=== PATIENT | female | born 1985 | race Caucasian/White ===

== ENCOUNTER 2019-06-23 11:54 | Outpatient (CLI) | payer OTHER ==
[~2019-06-23] VITALS: Ht 157.5 cm; Wt 75.6 kg
--- NOTE | 2019-06-23 12:05 | NUR ---
JORGITO TABARES I presented to unit via from ED, accompanied by s/o and staff, with c/o CONTRACTIONS. JORGITO TABARES I weighed, gowned, voided, and to bed. EFHM and TOCO applied, VS taken. JORGITO TABARES I oriented to bed controls, call light, TV, heat, and A/C controls.
[2019-06-23 12:15] VITALS: BP 111/62
[2019-06-23 12:40] VITALS: BP 111/64
[2019-06-23] MEDS ORDERED: IRON45TA6 PO (12:52)
[2019-06-23] MEDS ORDERED: PREN-37 PO (12:52)
--- NOTE | 2019-06-23 13:36 | NUR ---
DR. MCCALLUM NOTIFIED OF PT'S ARRIVAL, 36.6 WKS, , C/O CTXS SINCE 0500, VS, UA DIPSTICK, REVIEW OF STRIP, SVE. ORDERS RECEIVED FOR DISCHARGE HOME.
--- NOTE | 2019-06-23 13:53 | NUR ---
DISCHARGE PAPERS PROVIDED AND REVIEWED WITH PT, PT VERBALIZES UNDERSTANDING AND DENIES ANY QUESTIONS AT THIS TIME. PAPER SIGNED.
--- NOTE | 2019-06-23 13:56 | NUR ---
PT DISCHARGED FROM [facility] TO [facility] VIA AMBULATORY IN STABLE CONDITION ACC BY S/O.
--- NOTE | 2019-06-26 08:25 | Physician Query-Final Dx ---
Clinic Account Progress/Dx Physician Query: Please give diagnosis Please include # weeks gestation Date of Service Jun 23, 2019 at 11:54 KEVIN MELENDEZ Jun 26, 2019 08:25
== END 2019-06-23 13:56 | disposition home or self-care (01) ==
LOC: WSo 11:54 → LDRP 12:04 → WSo 13:56
PROVIDERS: ATTEND Family Medicine
DX: O62.9 Abnormality of forces of labor, unspecified (principal); Z3A.00 Weeks of gestation of pregnancy not specified
CPT/HCPCS: 99213

== ENCOUNTER 2019-07-06 13:13 | Outpatient (CLI) | payer OTHER ==
[~2019-07-06] VITALS: Ht 157.5 cm; Wt 77.3 kg
[~2019-07-06 13:13] MED LIST: IRON45TA6 PO; PREN-37 PO
--- NOTE | 2019-07-06 13:20 | NUR ---
JORGITO TABARES I presented to unit via AMBULATORY from ED, accompanied by S/O, AFTER BEING SENT OVER FROM THE OFFICE WITH CTXS. JORGITO TABARES I weighed, gowned, voided, and to bed. EFHM and TOCO applied, VS taken. JORGITO TABARES I oriented to bed controls, call light, TV, heat, and A/C controls.
[2019-07-06 13:26] VITALS: BP 110/60
--- NOTE | 2019-07-06 15:33 | NUR ---
DR. MULLEN CALLED, UPDATED ON LATEST SVE. NEW ORDERS RECEIVED. HAS ALREADY REVIEWED STRIP FROM HOME/OFFICE.
[2019-07-06] MEDS ORDERED: diphenhydrAMINE 25 MG TAB (BENADRYL) PO ONE ×2 (15:38→15:45)
[2019-07-06] MEDS ORDERED: morphine INJ 10 MG/ML 1ML (SYR OR VIAL) IM STA (15:38)
[2019-07-06] MEDS ORDERED: morphine INJ 10 MG/ML 1ML (SYR OR VIAL) ONE (15:39)
[2019-07-06 16:00] VITALS: BP 110/60
--- NOTE | 2019-07-06 17:00 | NUR ---
DISCHARGE PAPERS PROVIDED AND REVIEWED WITH PT, PT ACKNOWLEDGES, PAPER SIGNED.
--- NOTE | 2019-07-06 17:02 | NUR ---
MONITORS DC'D. REFER TO FLOW SHEET.
--- NOTE | 2019-07-06 17:09 | NUR ---
PT DISCHARGED FROM [facility] TO [facility] VIA AMBULATORY IN STABLE CONDITION ACC BY S/O.
--- NOTE | 2019-07-07 08:38 | Physician Query-Final Dx ---
KEVIN MELENDEZ 07/07/19 0838: Clinic Account Progress/Dx Physician Query: Please give diagnosis Please include # weeks gestation Date of Service July 06, 2019 at 13:13 SHANIKA MULLEN MD 07/10/19 1646: Clinic Account Progress/Dx DIAGNOSIS: Diagnosis Contractions without active labor 38 weeks gestation KEVIN MELENDEZ July 07, 2019 08:38 SHANIKA MULLEN MD July 10, 2019 16:46
== END 2019-07-06 17:09 | disposition home or self-care (01) ==
LOC: WSo 13:13 → LDRP 13:14 → WSo 17:09
PROVIDERS: ATTEND Family Medicine
DX: Z34.93 Encounter for supervision of normal pregnancy, unspecified, third trimester (principal); Z3A.38 38 weeks gestation of pregnancy
CPT/HCPCS: 96372; 99213

== ENCOUNTER 2019-07-14 06:08 | Inpatient (IN) | payer OTHER ==
[2019-07-14] VITALS (35 sets, daily range): BP systolic 98–144; BP diastolic 54–90
[~2019-07-14] VITALS: Ht 170.2 cm; Wt 80.0 kg
--- NOTE | 2019-07-14 06:15 | NUR ---
JORGITO TABARES I presented to unit via ambulation from home, accompanied by SO, for INDUCTION. JORGITO TABARES I weighed, gowned, voided, and to bed. EFHM and TOCO applied, VS taken. JORGITO TABARES I oriented to bed controls, call light, TV, heat, and A/C controls.
[2019-07-14] MEDS ORDERED: D5 LR IV SOLUTION 1,000 ML IV ONE (07:12)
[2019-07-14] MEDS: D5 LR IV SOLUTION 1,000 ML IV SCH ×2 (07:35→14:11)
[2019-07-14] MEDS ORDERED: OXYTOCIN PRE-MIX DRIP 500 ML IV SCH ×2 (08:09→16:00)
--- OUTSIDE RECORDS SUMMARY | 2019-07-14 08:10 | XMS REPORT | Continuity of Care Document ---
Author Organization Unknown Address Unknown Phone Unavailable Allergies Active Description Code Type Severity Reaction Onset Reported/Identified Relationship to Patient Clinical Status Yes amoxicillin [id number] Drug Aller gy Unknown N/A 06/23/2019 Medications There is no data. Problems Date Dx Coded Attending Type Code Diagnosis Diagnosed By 06/27/2019 XENA IRWIN, JUAN FRANCISCO Caceres Ot O62. 9 ABNORMALITY OF FORCES OF LABOR, UNSPECIF 06/27/2019 JUAN FRANCISCO MCCALLUM MD, Ot Z3A. 00 WEEKS OF GESTATION OF NOT SPEC 07/06/2019 SHANIKA MULLEN MD Ot Z34.93 ENCNTR FOR SUPRVSN OF NORMAL PREG, UNSP, 07/06/2019 SHANIKA MULLEN MD Ot Z3A.38 38 WEEKS GESTATION OF 07/10/2019 SHANIKA MULLEN MD Ot Z34.93 ENCNTR FOR SUPRVSN OF NORMAL PREG, UNSP, 07/10/2019 SHANIKA MULLEN MD, Ot Z3A.38 38 WEEKS GESTATION OF Procedures There is no data. Results Test Result Range CULTURE, URINE - 06/14/19 12:43 CULTURE, URINE, ROUTINE SEE NOTE NRG CULTURE, GROUP B STREP WITH SUSCEPTIBILI TY - 06/20/19 13:36 CULTURE, GROUP B STREP WITH SUSCEPTIBILITY SEE NOT E NRG Encounters ACCT No. Visit Date/Time Discharge Status Pt. Type Provider Facility Loc./Unit Complaint [id number] 07/06/2019 11:00:00 07/06/2019 23:59: 59 CLS Outpatient RONNY DIAZ VARSHA [facility] [id number] 06/20/2019 09:40:00 Document Registration [id number] 06/14/2019 10:40:00 Document Registration [id number] 07/06/2019 13:13:00 020 17:09:00 DIS Outpatient SHANIKA MULLEN MD [facility] [id number] 06/23/2019 11:54:00 04/24/2 020 13:56:00 DIS Outpatient XENA IRWIN, JUAN FRANCISCO Gant [facility] CONTRACTIONS [id number] 07/14/2019 06:30:00 Anna MULLEN MD, SHANIKA KHAN
[2019-07-14 08:19] LABS: BASOPHILS % (AUTO) 0 % (0-10); EOSINOPHILS # (AUTO) 0.1 10^3/uL (0.0-0.3); EOSINOPHILS % (AUTO) 2 % (0-10); HEMATOCRIT 36 % (35-52); HEMOGLOBIN 11.8 G/DL (11.5-16.0); LYMPHOCYTES # (AUTO) 1.7 X 10^3 (1.0-4.0); LYMPHOCYTES % (AUTO) 24 % (12-44); MEAN CORPUSCULAR HEMOGLOBIN 29 PG (25-34); MEAN CORPUSCULAR HGB CONC 33 G/DL (32-36); MEAN CORPUSCULAR VOLUME 89 FL (80-99); MONOCYTES % (AUTO) 13 % (0-12); NEUTROPHILS # (AUTO) 4.5 X 10^3 (1.8-7.8); NEUTROPHILS % (AUTO) 61 % (42-75); PLATELET COUNT 151 10^3/uL (130-400); RED CELL DISTRIBUTION WIDTH 15.4 % (10.0-14.5); WHITE BLOOD COUNT 7.3 10^3/uL (4.3-11.0)
--- NOTE | 2019-07-14 08:31 | History & Physical-OB ---
OB - Chief Complaint & HPI Date/Time Date of Admission: Date of Admission: July 14, 2019 at 06:08 Date seen by a Provider: July 14, 2019 Time Seen by a Provider: 11:02 Chief Complaint/History OB-Reason for Admission/Chief: Induction of Labor Hx : 4 Hx Para: 3 Expected Date of Delivery: July 15, 2019 Gestational Age in Weeks: 39 Gestational Age in Days: 6 Indication for induction: maternal discomfort History of Labs A+, antibody neg, RNI. HIV/HepB/RPR NR. GC/chlamydia neg. GBS neg. Allergies and Home Medications Allergies Coded Allergies: amoxicillin (Verified Allergy, Unknown, 06/23/19) morphine (Verified Allergy, Unknown, 07/14/19) Home Medications Iron,Carbonyl 45 Mg Tablet, 45 MG PO DAILY, (Reported) Vit/Iron Fumarate/FA 1 Each Tablet, 1 EACH PO DAILY, (Reported) Patient Home Medication List Home Medication List Reviewed: Yes OB - History Hx of Present Care: Yes Ultrasounds: Normal mid trimester US Obstetrical Complications: None Information Induced Hypertension: No Maternal Gestational Diabetes: No Hemorrhage: No Obstetrical History Hx : 4 Hx Para: 3 Hx # Term Pregnancies: 3 Hx # Pregnancies: 0 Number of Living Children: 3 Hx Termination: No Hx Multiple Gestation: No Hx Ectopic : No Hx Stillbirth: No Hx Complication: No Hx Induced Hypertens: No Hx Maternal Gestational Diabet: No Hx Hemorrhage: No Delivery History Hx Dystocia: No Hx Forceps Assisted Delivery: No Hx Vacuum Extraction Assisted: No Hx Placenta Abnormality: No Hx Distress: No Hx Large For Gestational Age I: No Hx Small for Gestational Age I: No Hx Section: No Hx Vaginal Delivery Post C-Sec: No Hx Blood Disorders: No Adverse Rxn to Tranfusion: No Patient Past Medical History PMHx: Deaf SurgHx: Denies Social History/Family History HIV/AIDS: No Recent Infectious Disease Expo: No Sexually Transmitted Disease: No Alcohol Use: Denies Use Recreational Drug Use: No Smoking Cessation: Never smoker Immunizations Tetanus Booster (TDap): Less than 5yrs (05/02/2019) Rubella: not immune RPR/VDRL: Negative GBS Status: Negative HBsAG: Negative OB - Admission Exam Physical Exam HEENT: NCAT Abdomen: Gravid Extremities: Normal Cervical Dilatation: 3cm Effacement: 0% Station: -3 Membranes: Intact Preston Scoring Tool (Modified) Dilation (cm): 3-4cm (2) Effacement (%): 0-30% (0) Descent/Station: -3 (0) Cervix Consistency: Soft (2) Cervix Position: Posterior (0) Add 1 point for: Each previous vaginal delivery (1) (3) Labs Laboratory Tests Test 07/14/19 07:35 Range/Units White Blood Count 7.3 4.3-11.0 10^3/uL Red Blood Count 4.10 L 4.35-5.85 10^6/uL Hemoglobin 11.8 11.5-16.0 G/DL Hematocrit 36 35-52 % Mean Corpuscular Volume 89 80-99 FL Mean Corpuscular Hemoglobin 29 25-34 PG Mean Corpuscular Hemoglobin Concent 33 32-36 G/DL Red Cell Distribution Width 15.4 H 10.0-14.5 % Platelet Count 151 130-400 10^3/uL Mean Platelet Volume 11.0 H 7.4-10.4 FL Neutrophils (%) (Auto) 61 42-75 % Lymphocytes (%) (Auto) 24 12-44 % Monocytes (%) (Auto) 13 H 0-12 % Eosinophils (%) (Auto) 2 0-10 % Basophils (%) (Auto) 0 0-10 % Neutrophils # (Auto) 4.5 1.8-7.8 X 10^3 Lymphocytes # (Auto) 1.7 1.0-4.0 X 10^3 Monocytes # (Auto) 1.0 0.0-1.0 X 10^3 Eosinophils # (Auto) 0.1 0.0-0.3 10^3/uL Basophils # (Auto) 0.0 0.0-0.1 10^3/uL OB - Assessment/Plan/Diagnosis Assessment Admission Dx Induction of labor 39 weeks gestation GBS neg Admission Status: Inpatient Order (span 2 midnights) Reason for Inpatient Admission: Induction, labor and delivery and course Plan Plan: Induction Induction Method: per Pitocin Protocol SHANIKA MULLEN MD July 14, 2019 08:31
[2019-07-14] MEDS ORDERED: fentaNYL 2 mcg/ml BUPIVA 0.125 100 ML ONE (09:03)
[2019-07-14] MEDS ORDERED: BUPIVACAINE 0.25% 30 ML (SENSORCAINE) VIAL ONE (09:19)
[2019-07-14] MEDS ORDERED: fentaNYL INJECTION 100 MCG/2 ML AMP ONE (09:20)
--- NOTE | 2019-07-14 09:30 | NUR ---
Dr. Smiley here for epidural placement. Procedure explained, consent reviewed and signed by anesthesia. Questions answered to patient's satisfaction. Time out taken to verify correct patient/procedure. Patient up to side of bed, assisted into sitting position. Betadine prep done x3 and sterile drape applied. Local done, see anesthesia record. Test dose given, see anesthesia record for drug and dosage. Epidural catheter secured in place. Epidural placement complete. Assisted back into bed, monitors adjusted. Epidural dosed, see anesthesia record. Epidural of Fentanyl/Bupivicaine @ 12 cc/hr stated per pump. Patient tolerated procedure well.
[2019-07-14] MEDS ORDERED: fentaNYL 2 mcg/ml BUPIVA 0.125 100 ML IV SCH (09:59)
[2019-07-14] MEDS ORDERED: LACTATED RINGERS 1,000 ML IV ONE (09:59)
[2019-07-14] MEDS ORDERED: EPIDURAL (fentaNYL 2 MCG/ML BUPIVA 0.125%)100 ML BAG EPI SCH (10:00)
[2019-07-14] MEDS ORDERED: NALOXONE 0.4 MG/ML 1 ML (NARCAN) VIAL IV PRN (10:00)
[2019-07-14] MEDS ORDERED: CATHETER FLUSH 10 ML SYR IV PRN (10:00)
[2019-07-14] MEDS ORDERED: diphenhydrAMINE 50 MG/ML INJ (BENADRYL) IV PRN (10:00)
[2019-07-14] MEDS ORDERED: ONDANSETRON 4 MG/2 ML (SDV) Z0FRAN IV PRN (10:00)
[2019-07-14] MEDS ORDERED: CATHETER FLUSH 10 ML SYR IV SCH ×2 (14:00→22:00)
[2019-07-14] MEDS ORDERED: MINERAL OIL CONCENTRATE 99.9% 15 ML UDC ONE (14:05)
[2019-07-14] MEDS ORDERED: LIDOCAINE/EPI 2% 1:200,00 (XYLOCAINE) 20 ML VIAL ONE (14:05)
--- NOTE | 2019-07-14 15:48 | OB Labor & Delivery Record ---
Vag Delivery Note Vag Delivery Note Date of Delivery: 07/14/19 Preoperative Diagnosis: Dara Cox is a (33 /Para 4 / 3, Gestational Age (wks)39with 6 days Postoperative Diagnosis: Same Surgeon: SHANIKA MULLEN Anesthesia: epidural Delivery Type: Spontaneous vaginal Findings: Viable female , apgars 8/9, weight 8#4 Lacerations: None Intact placenta with 3 vessel cord. No nuchal cord, body cord or shoulder dystocia Estimated Blood Loss: 200 ml Complications: None Condition: Stable Description of Procedure: The patient is a 33 year old female who presented for induction of labor. She was admitted and informed consent was obtained. Her labor course was unremarkable. She progressed to complete dilatation and began to push. She was then set up for delivery. The 's head was delivered atraumatically in the MARTHA position. The shoulders and remainder of the infant's body were then delivered without difficulty. Upon delivery, the infant was placed on maternal abdomen and the mouth and nares were bulb suctioned. After a delay the cord was doubly clamped and cut and the remained on maternal abdomen. An intact placenta with 3-vessel cord delivered via Yaw and there was found to be mi nimal bleeding.~ Vigorous fundal massage was performed and the fundus was found to be firm. IV oxytocin was given. Examination of the vagina and perineum revealed no lacerations. Following the delivery sponge, instrument and needle counts were correct. Mom and baby were both in stable condition in the labor suite. Vitals - Labs Vital Signs - I&O Vital Signs Date Time Temp Pulse Resp B/P (MAP) Pulse Ox O2 Delivery O2 Flow Rate FiO2 07/14/19 09:45 36.4 81 16 126/69 (88) 100 Room Air 07/14/19 09:30 90 16 132/90 (104) 100 Room Air 07/14/19 09:15 61 16 129/78 (95) 100 Room Air 07/14/19 09:00 60 16 127/72 (90) 99 Room Air 07/14/19 08:45 36.4 56 16 124/65 (84) 100 Room Air 07/14/19 08:30 76 16 123/68 (86) 99 Room Air 07/14/19 08:00 77 16 98 Room Air 07/14/19 07:13 56 16 112/67 (82) Room Air 07/14/19 07:13 36.4 56 16 98 Room Air Labs Laboratory Tests 07/14/19 07:35: White Blood Count 7.3, Red Blood Count 4.10L, Hemoglobin 11.8, Hematocrit 36, Mean Corpuscular Volume 89, Mean Corpuscular Hemoglobin 29, Mean Corpuscular Hemoglobin Concent 33, Red Cell Distribution Width 15.4H, Platelet Count 151, Mean Platelet Volume 11.0H, Neutrophils (%) (Auto) 61, Lymphocytes (%) (Auto) 24, Monocytes (%) (Auto) 13H, Eosinophils (%) (Auto) 2, Basophils (%) (Auto) 0, Neutrophils # (Auto) 4.5, Lymphocytes # (Auto) 1.7, Monocytes # (Auto) 1.0, Eosinophils # (Auto) 0.1, Basophils # (Auto) 0.0 07/14/19 08:20: SHANIKA MULLEN MD July 14, 2019 15:48
[2019-07-14] MEDS ORDERED: WITCH HAZEL(TUCKS) 40 EA JAR TOP PRN (16:00)
[2019-07-14] MEDS ORDERED: MEASLES,MUMPS,RUBELLA 1 EA INJ SQ ONE (16:00)
[2019-07-14] MEDS ORDERED: BENZOCAINE/MENTHOL (DERMOPLAST) 60 ML CAN TP PRN (16:00)
[2019-07-14] MEDS ORDERED: TETANUS,DIPTH,PERTUSS P/F (BOOSTRIX) 0.5 ML VIAL IM ONE (16:00)
[2019-07-14] MEDS: IBUPROFEN 600 MG (MOTRIN) TAB PO SCH (18:20)
--- NOTE | 2019-07-14 18:45 | NUR ---
Patient transferred via wheelchair to room 311. Patient's left leg still "heavy." Patient denies needing to use the restroom at this time. Plan of care reviewed with patient and S.O. Understanding communicated.
[2019-07-14] MEDS: DOCUSATE SODIUM 100 MG (COLACE) CAP PO SCH (20:17)
[2019-07-15 00:55] VITALS: BP 122/66
[2019-07-15] MEDS: IBUPROFEN 600 MG (MOTRIN) TAB PO SCH ×3 (00:57→12:50)
[2019-07-15 04:10] VITALS: BP 110/68
[2019-07-15 06:20] LABS: BASOPHILS % (AUTO) 0 % (0-10); EOSINOPHILS # (AUTO) 0.2 10^3/uL (0.0-0.3); EOSINOPHILS % (AUTO) 2 % (0-10); HEMATOCRIT 35 % (35-52); HEMOGLOBIN 11.4 G/DL (11.5-16.0); LYMPHOCYTES # (AUTO) 2.1 X 10^3 (1.0-4.0); LYMPHOCYTES % (AUTO) 22 % (12-44); MEAN CORPUSCULAR HEMOGLOBIN 29 PG (25-34); MEAN CORPUSCULAR HGB CONC 32 G/DL (32-36); MEAN CORPUSCULAR VOLUME 89 FL (80-99); MEAN PLATELET VOLUME 10.5 FL (7.4-10.4); MONOCYTES # (AUTO) 0.7 X 10^3 (0.0-1.0); MONOCYTES % (AUTO) 7 % (0-12); NEUTROPHILS # (AUTO) 6.6 X 10^3 (1.8-7.8); NEUTROPHILS % (AUTO) 69 % (42-75); PLATELET COUNT 146 10^3/uL (130-400); RED CELL DISTRIBUTION WIDTH 15.6 % (10.0-14.5); WHITE BLOOD COUNT 9.6 10^3/uL (4.3-11.0)
[2019-07-15 08:35] VITALS: BP 118/63
[2019-07-15] MEDS: DOCUSATE SODIUM 100 MG (COLACE) CAP PO SCH (08:42)
--- NOTE | 2019-07-15 10:46 | Anesthesia-Regional Post-Op ---
Regional Patient Condition Mental Status: Alert, Oriented x3 Circulation: Same as Pre-Op Headache: Absent Sensation: Full Recovery Motor Block: Absent Post Op Complications Complications None Follow Up Care/Instructions Patient Instructions None needed. Anesthesia/Patient Condition Patient is doing well, no complaints, stable vital signs, no apparent adverse anesthesia problems. No complications reported per nursing. RILEY GARCIA CRNA July 15, 2019 10:46
[2019-07-15 12:45] VITALS: BP 120/77
--- NOTE | 2019-07-15 14:00 | NUR ---
REPORT RECEIVED FROM MERE BRADLEY RN. CARE ASSUMED OF THIS PT.
--- NOTE | 2019-07-15 15:00 | NUR ---
PT ANXIOUS TO GO HOME. PT AND S.O. BOTH DEAF. WRITING ON WHITE BOARD TO COMMUNICATE.
--- NOTE | 2019-07-15 15:36 | NUR ---
CALLED LAB TO INFORM OF PT WANTING TO GO HOME THIS EVENING AFTER 'S 24 HOUR SCREEN. WILL SEND SOMEONE UP.
--- NOTE | 2019-07-15 17:06 | NUR ---
DR. CASTILLO NOTIFIED OF PHARMACY PT WILL USE.
--- NOTE | 2019-07-15 17:07 | Discharge Summary ---
Diagnosis/Chief Complaint Date of Admission July 14, 2019 at 06:08 Date of Discharge 07/15/2019 Admission Diagnosis Admission Diagnosis Term 39 week gestation Discharge Diagnosis @ 39 wga Term Female Infant Discharge Summary-Simple/Stand Procedures Discharge Physical Examination Allergies: Coded Allergies: amoxicillin (Verified Allergy, Unknown, 06/23/19) Vitals & I&Os Vital Sign - Last 12Hours Date Time Temp Pulse Resp B/P (MAP) Pulse Ox O2 Delivery O2 Flow Rate FiO2 07/15/19 12:50 36.6 07/15/19 12:45 60 16 120/77 (91) 98 Room Air Intake and Output 07/15/19 00:00 Intake Total 2100 ml Balance 2100 ml General Appearance: Alert, Oriented X3, Cooperative, No Acute Distress HEENT: Mucous Memb Moist/Kennard Respiratory: Clear to Auscultation, Normal Air Movement Cardiovascular: Regular Rate, No Murmurs Abdominal: Normal Bowel Sounds, Soft, No Tenderness, Other (fundus firm and below umbilicus) Extremities: No Edema, No Tenderness/Swelling Psych/Mental Status: Mental Status NL, Mood NL Hospital Course Was the Problem List Reviewed?: Yes See final discharge diagnosis. Discussion & Recommendations 33 yo G4 now P4 delivered term female infant via @ 39 wga. Uncomplicated delivery and post care. Discharge Condition at discharge Stable Instructions to patient/family Please see electronic discharge instructions given to patient. Discharge Medications Reviewed and agree with Discharge Medication list on patient's Discharge Instruction sheet Clinical Quality Measures DVT/VTE Risk/Contraindication: Risk Factor Score Per Nursin RFS Level Per Nursing on Admit: 1=Low/No VTE PPX Copy Copies To 1: SHANIKA MULLEN MD, HOLLY R MD July 15, 2019 17:07
[2019-07-15] MEDS ORDERED: IBUP-844 PO (17:08)
--- NOTE | 2019-07-15 17:09 | Discharge Summary ---
Discharge Inst-[facility] Reconcile Patient Problems Problems Reviewed?: Yes Depart Medications New, Converted or Re-Newed RX: Transmitted to Pharmacy New Medications: Ibuprofen (Ibu) 600 Mg Tablet 600 MG PO Q6H, #90 TAB Continued Medications: Vit/Iron Fumarate/FA ( Tablet) 1 Each Tablet 1 EACH PO DAILY, TAB Discontinued Medications: Iron,Carbonyl (Feosol) 45 Mg Tablet 45 MG PO DAILY, TAB Follow Up/Instructions Goal/Follow Up: [address] Sandhu Activity Activity: Activity as Tolerated Driving Instructions: You May Drive NO SMOKING: NO SMOKING Nothing Inside Vagina: No Douching, No [place], No Tampons Diet Discharge Diet: No Restrictions Symptoms to Report to : Swelling Increased, Bleeding Excessive, Fever Over 101 Degrees F For Any Problems or Questions: Contact Your Physician Copies To 1: SHANIKA SANDHU MD, HOLLY R MD July 15, 2019 17:09
[2019-07-15 17:45] VITALS: BP 137/65
--- NOTE | 2019-07-15 18:00 | NUR ---
DISCHARGE INSTRUCTIONS READ BY PT AND COPY GIVEN. (PT AND S.O. BOTH DEAF). STATES UNDERSTANDING OF ALL INSTRUCTIONS AND NEED TO F/U SCHEDULED AND NEEDED.
[2019-07-15 18:15] VITALS: BP 137/65
--- NOTE | 2019-07-15 18:15 | NUR ---
DISMISSED FROM [facility]IA W/C WITH IN STABLE CONDITION TO FAMILY CAR ACC BY ZACHARY YOUNG.
== END 2019-07-15 18:15 | disposition home or self-care (01) | DRG 807 ==
LOC: LDRP 06:08
PROVIDERS: ADMIT Family Medicine; ATTEND Family Medicine
PROC: 10E0XZZ Delivery of Products of Conception, External Approach (ICD-10-PCS; principal; 2019-07-14)
PROC: 3E033VJ Introduction of Other Hormone into Peripheral Vein, Percutaneous Approach (ICD-10-PCS; 2019-07-14)
DX: O99.89 Other specified diseases and conditions complicating pregnancy, childbirth and the puerperium (principal); H91.93 Unspecified hearing loss, bilateral; Z3A.39 39 weeks gestation of pregnancy; Z37.0 Single live birth
CPT/HCPCS: 36415; 85025; 86780; 86850; 86900; 86901

== ENCOUNTER 2020-07-18 12:15 | Inpatient (IN) | payer MEDICAID ==
[~2020-07-18] VITALS: Ht 165 cm; Wt 81.4 kg
[2020-07-18] VITALS (40 sets, daily range): BP systolic 103–142; BP diastolic 53–82
[~2020-07-18 12:15] MED LIST changes: +IBUP-844 PO
[2020-07-18] MEDS ORDERED: MINERAL OIL CONCENTRATE 99.9% 15 ML UDC TOP PRN (12:30)
[2020-07-18] MEDS ORDERED: LABETALOL HCL 100 MG/20 ML VIAL IV PRN (12:30)
[2020-07-18] MEDS ORDERED: hydrALAZINE (APESOLINE) 20 MG/ML VIAL IV PRN (12:30)
[2020-07-18] MEDS ORDERED: OXYTOCIN PRE-MIX DRIP 500 ML IV SCH ×2 (12:30→23:00)
[2020-07-18] MEDS ORDERED: CATHETER FLUSH 10 ML SYR IV SCH ×2 (14:00→23:00)
[2020-07-18 14:05] LABS: BASOPHILS # (AUTO) 0.1 10^3/uL (0.0-0.1); BASOPHILS % (AUTO) 1 % (0-10); EOSINOPHILS # (AUTO) 1.2 10^3/uL (0.0-0.3); EOSINOPHILS % (AUTO) 10 % (0-10); HEMATOCRIT 36 % (35-52); HEMOGLOBIN 11.6 g/dL (11.5-16.0); LYMPHOCYTES # (AUTO) 1.7 10^3/uL (1.0-4.0); LYMPHOCYTES % (AUTO) 14 % (12-44); MEAN CORPUSCULAR HEMOGLOBIN 29 pg (25-34); MEAN CORPUSCULAR HGB CONC 32 g/dL (32-36); MEAN CORPUSCULAR VOLUME 89 fL (80-99); MEAN PLATELET VOLUME 10.2 fL (9.0-12.2); MONOCYTES # (AUTO) 0.7 10^3/uL (0.0-1.0); MONOCYTES % (AUTO) 6 % (0-12); NEUTROPHILS # (AUTO) 8.3 10^3/uL (1.8-7.8); NEUTROPHILS % (AUTO) 69 % (42-75); PLATELET COUNT 227 10^3/uL (130-400)
[2020-07-18] MEDS: D5 LR IV SOLUTION 1,000 ML IV SCH ×2 (14:07→22:08)
[2020-07-18 14:22] LABS: URINE CREATININE FOR RATIO 83 MG/DL (30-125); URINE PROTEIN FOR RATIO ONLY < 6 MG/DL (6-12)
[2020-07-18 14:32] LABS: ALANINE AMINOTRANSFERASE 13 U/L (0-55); ALBUMIN 3.3 GM/DL (3.2-4.5); ALKALINE PHOSPHATASE 123 U/L (40-136); BILIRUBIN,TOTAL 0.2 MG/DL (0.1-1.0); BUN/CREATININE RATIO 12; CALCIUM 8.5 MG/DL (8.5-10.1); CARBON DIOXIDE 20 MMOL/L (21-32); CHLORIDE 106 MMOL/L (98-107); CREATININE SERUM 0.77 MG/DL (0.60-1.30); GFR ESTIMATED > 60; GLUCOSE 73 MG/DL (70-105); POTASSIUM 4.1 MMOL/L (3.6-5.0); SODIUM 134 MMOL/L (135-145); TOTAL PROTEIN 6.1 GM/DL (6.4-8.2); URIC ACID 7.3 MG/DL (2.6-7.2)
[2020-07-18] MEDS ORDERED: LABETALOL HCL 20 MG/4 ML VIAL IV PRN (16:15)
[2020-07-18] MEDS ORDERED: fentaNYL 2 mcg/ml BUPIVA 0.125 100 ML ONE (16:40)
[2020-07-18] MEDS ORDERED: fentaNYL INJ 100 MCG/2 ML AMP ONE (17:07)
[2020-07-18] MEDS ORDERED: BUPIVACAINE 0.25% 30 ML (SENSORCAINE) VIAL ONE ×2 (17:07→20:13)
[2020-07-18] MEDS ORDERED: LACTATED RINGERS 1,000 ML IV ONE (18:30)
[2020-07-18] MEDS ORDERED: NALOXONE 0.4 MG/ML 1 ML (NARCAN) VIAL IV PRN (20:15)
[2020-07-18] MEDS ORDERED: CATHETER FLUSH 10 ML SYR IV PRN (20:15)
[2020-07-18] MEDS ORDERED: fentaNYL 2 mcg/ml BUPIVA 0.125 100 ML IV SCH (20:30)
--- NOTE | 2020-07-18 21:08 | History & Physical-OB ---
OB - Chief Complaint & HPI Date/Time Date of Admission: Date of Admission: Date seen by a Provider: July 18, 2020 Time Seen by a Provider: 16:30 Chief Complaint/History OB-Reason for Admission/Chief: Obstetrical Complication Hx : 5 Hx Para: 4 Expected Date of Delivery: Aug 02, 2020 Gestational Age in Weeks: 37 Gestational Age in Days: 6 Indication for induction: medical complication Other reason for admission: at 37w6d had blood pressure in the 140s/90s in clinic yesterday, repeat this morning 150s/90s, so she was sent for induction of labor. History of Labs A+, antibody neg, RNI, HIV/hepB/RPR NR. Glucola nml. GBS neg. Allergies and Home Medications Allergies Coded Allergies: amoxicillin (Verified Allergy, Unknown, 06/23/19) Home Medications Vit/Iron Fumarate/FA 1 Each Tablet, 1 EACH PO DAILY, (Reported) Last Action: Reviewed Patient Home Medication List Home Medication List Reviewed: Yes OB - History Hx of Present Care: Yes Ultrasounds: Normal mid trimester US Obstetrical Complications: Gestational Hypertension Information Induced Hypertension: Yes Maternal Gestational Diabetes: No Hemorrhage: No Obstetrical History Hx : 5 Hx Para: 4 Hx # Term Pregnancies: 4 Hx # Pregnancies: 0 Number of Living Children: 4 Hx Termination: No Hx Multiple Gestation: No Hx Ectopic : No Hx Stillbirth: No Hx Complication: No Hx Induced Hypertens: No Hx Maternal Gestational Diabet: No Hx Hemorrhage: No Delivery History Hx Dystocia: No Hx Forceps Assisted Delivery: No Hx Vacuum Extraction Assisted: No Hx Placenta Abnormality: No Hx Distress: No Hx Large For Gestational Age I: No Hx Small for Gestational Age I: No Hx Section: No Hx Vaginal Delivery Post C-Sec: No Hx Blood Disorders: No Adverse Rxn to Tranfusion: No Patient Past Medical History PMHx: Deaf Suspected asthma SurgHx: Denies Social History/Family History Alcohol Use: Denies Use Immunizations Hepatitis A: No Hepatitis B: No Tetanus Booster (TDap): Less than 5yrs Rubella: not immune RPR/VDRL: Negative GBS Status: Negative HBsAG: Negative OB - Admission Exam Physical Exam Vitals: Vital Signs 07/18/20 07/18/20 18:15 19:00 Temp 36.5 Pulse 68 Resp 18 B/P (MAP) 115/65 (82) Pulse Ox 98 O2 Delivery Room Air Cervical Dilatation: 2cm Effacement: 0% Station: -3 Membranes: Intact Contractions on Admission: 6-10 Minutes Apart Preston Scoring Tool (Modified) Dilation (cm): 1-2cm (1) Effacement (%): 0-30% (0) Descent/Station: -3 (0) Cervix Consistency: Soft (2) Cervix Position: Posterior (0) Add 1 point for: Each previous vaginal delivery (1) (4) Preston Score: 7 Labs Laboratory Tests Test 07/18/20 13:50 07/18/20 14:00 Range/Units Urine Protein < 6 L 6-12 MG/DL Urine Creatinine 83 30-125 MG/DL Urine Protein/Creatinine Ratio White Blood Count 12.0 H 4.3-11.0 10^3/uL Red Blood Count 4.03 3.80-5.11 10^6/uL Hemoglobin 11.6 11.5-16.0 g/dL Hematocrit 36 35-52 % Mean Corpuscular Volume 89 80-99 fL Mean Corpuscular Hemoglobin 29 25-34 pg Mean Corpuscular Hemoglobin Concent 32 32-36 g/dL Red Cell Distribution Width 14.6 H 10.0-14.5 % Platelet Count 227 130-400 10^3/uL Mean Platelet Volume 10.2 9.0-12.2 fL Immature Granulocyte % (Auto) 1 % Neutrophils (%) (Auto) 69 42-75 % Lymphocytes (%) (Auto) 14 12-44 % Monocytes (%) (Auto) 6 0-12 % Eosinophils (%) (Auto) 10 0-10 % Basophils (%) (Auto) 1 0-10 % Neutrophils # (Auto) 8.3 H 1.8-7.8 10^3/uL Lymphocytes # (Auto) 1.7 1.0-4.0 10^3/uL Monocytes # (Auto) 0.7 0.0-1.0 10^3/uL Eosinophils # (Auto) 1.2 H 0.0-0.3 10^3/uL Basophils # (Auto) 0.1 0.0-0.1 10^3/uL Immature Granulocyte # (Auto) 0.1 0.0-0.1 10^3/uL Sodium Level 134 L 135-145 MMOL/L Potassium Level 4.1 3.6-5.0 MMOL/L Chloride Level 106 98-107 MMOL/L Carbon Dioxide Level 20 L 21-32 MMOL/L Anion Gap 8 5-14 MMOL/L Blood Urea Nitrogen 9 7-18 MG/DL Creatinine 0.77 0.60-1.30 MG/DL Estimat Glomerular Filtration Rate > 60 BUN/Creatinine Ratio 12 Glucose Level 73 70-105 MG/DL Uric Acid 7.3 H 2.6-7.2 MG/DL Calcium Level 8.5 8.5-10.1 MG/DL Corrected Calcium 9.1 8.5-10.1 MG/DL Total Bilirubin 0.2 0.1-1.0 MG/DL Aspartate Amino Transf (AST/SGOT) 18 5-34 U/L Alanine Aminotransferase (ALT/SGPT) 13 0-55 U/L Alkaline Phosphatase 123 40-136 U/L Lactate Dehydrogenase 160 125-220 U/L Total Protein 6.1 L 6.4-8.2 GM/DL Albumin 3.3 3.2-4.5 GM/DL OB - Assessment/Plan/Diagnosis Assessment Admission Dx Gestational hypertension 37 weeks gestation GBS negative Rubella non-immune Admission Status: Inpatient Order (span 2 midnights) Reason for Inpatient Admission: Labor, delivery and course Plan Plan: Induction Induction Method: per Pitocin Protocol Other Plan Preeclampsia labs, labetalol if needed for BP, but blood pressure good on arrival. SHANIKA MULLEN MD July 18, 2020 21:08
--- NOTE | 2020-07-18 21:10 | Labor Progress Note ---
Labor Progress Note Labor Progress Note Date Seen by Provider: July 18, 2020 Time Seen by Provider: 20:45 Subjective: Pt denies complaints. Objective: Cervical exam: / Consistency: soft Position: anterior Presentation: vertex heart tones: 140 beats per minute, moderate variability, reactive, noted late decel with 3 contractions in a row, no further after Tocometer: 5 ctx/10 minutes Assessment/Plan: Dara Cox is a (34 /Para / ,Gestational Age (wks)37 here for IOL for GHTN. CEFM/TOCO Continue pitocin/AROM done at time of exam with clear fluid Anesthesia: epidural Anticipate vaginal delivery. Vitals - Labs Vital Signs - I&O Vital Signs Date Time Temp Pulse Resp B/P (MAP) Pulse Ox O2 Delivery O2 Flow Rate FiO2 07/18/20 19:00 68 18 115/65 (82) 98 Room Air 07/18/20 18:45 73 18 109/64 (79) 98 Room Air 07/18/20 18:30 80 18 110/55 (73) 98 Room Air 07/18/20 18:15 36.5 81 18 121/62 (81) 98 Room Air 07/18/20 18:00 75 18 117/70 (86) 98 Room Air 07/18/20 17:55 78 18 116/61 (79) 98 Room Air 07/18/20 17:50 82 18 122/68 (86) 98 Room Air 07/18/20 17:45 84 18 129/58 (81) 98 Room Air 07/18/20 17:40 80 18 128/67 (87) 98 Room Air 07/18/20 17:35 88 18 118/64 (82) 98 Room Air 07/18/20 17:30 110 18 127/78 (94) Room Air 07/18/20 17:25 104 18 142/71 (94) 99 Room Air 07/18/20 17:20 81 18 128/82 (97) 98 Room Air 07/18/20 17:15 84 18 128/66 (86) Room Air 07/18/20 17:00 72 18 119/58 (78) Room Air 07/18/20 16:45 68 18 118/58 (78) Room Air 07/18/20 16:30 61 18 113/63 (80) Room Air 07/18/20 16:15 74 18 132/74 (93) Room Air 07/18/20 16:00 36.5 80 18 127/67 (87) Room Air 07/18/20 15:45 66 18 129/62 (84) Room Air 07/18/20 15:30 63 18 116/64 (81) 99 Room Air 07/18/20 15:15 36.5 70 18 120/68 (85) 99 Room Air 07/18/20 15:00 108/57 (74) Room Air 07/18/20 14:45 121/60 (80) Room Air 07/18/20 14:30 134/62 (86) Room Air 07/18/20 14:15 36.5 76 110/72 (85) Room Air 07/18/20 14:00 36.5 76 110/72 (85) Room Air 07/18/20 13:25 76 110/72 (85) Room Air 07/18/20 13:15 Room Air 07/18/20 13:00 36.5 97 18 98 Room Air 07/18/20 13:00 98 Room Air 07/18/20 12:51 36.5 78 16 111/75 (87) 98 Room Air Labs Laboratory Tests 07/18/20 13:50: Urine Protein < 6L, Urine Creatinine 83, Urine Protein/Creatinine Ratio 07/18/20 14:00: White Blood Count 12.0H, Red Blood Count 4.03, Hemoglobin 11.6, Hematocrit 36, Mean Corpuscular Volume 89, Mean Corpuscular Hemoglobin 29, Mean Corpuscular Hemoglobin Concent 32, Red Cell Distribution Width 14.6H, Platelet Count 227, Mean Platelet Volume 10.2, Immature Granulocyte % (Auto) 1, Neutrophils (%) (Auto) 69, Lymphocytes (%) (Auto) 14, Monocytes (%) (Auto) 6, Eosinophils (%) (Auto) 10, Basophils (%) (Auto) 1, Neutrophils # (Auto) 8.3H, Lymphocytes # (Auto) 1.7, Monocytes # (Auto) 0.7, Eosinophils # (Auto) 1.2H, Basophils # (Auto) 0.1, Immature Granulocyte # (Auto) 0.1, Sodium Level 134L, Potassium Level 4.1, Chloride Level 106, Carbon Dioxide Level 20L, Anion Gap 8, Blood Urea Nitrogen 9, Creatinine 0.77, Estimat Glomerular Filtration Rate > 60, BUN/Creatinine Ratio 12, Glucose Level 73, Uric Acid 7.3H, Calcium Level 8.5, Corrected Calcium 9.1, Total Bilirubin 0.2, Aspartate Amino Transf (AST/SGOT) 18, Alanine Aminotransferase (ALT/SGPT) 13, Alkaline Phosphatase 123, Lactate Dehydrogenase 160, Total Protein 6.1L, Albumin 3.3 SHANIKA MULLEN MD July 18, 2020 21:10
--- NOTE | 2020-07-18 21:49 | OB Labor & Delivery Record ---
Vag Delivery Note Vag Delivery Note Date of Delivery: 07/18/20 Preoperative Diagnosis: Dara Cox is a (34 /Para 5 / 4, Gestational Age (wks)37with 6 days Postoperative Diagnosis: Same Surgeon: SHANIKA MULLEN Anesthesia: Epidural Delivery Type: Spontaneous vaginal delivery Findings: Viable female infant, apgars 8/9, weight pending Lacerations: None Intact placenta with 3 vessel cord. No nuchal cord, body cord or shoulder dystocia Estimated Blood Loss: 200 ml Complications: None Condition: Stable Description of Procedure: The patient is a 34 year old female who presented for IOL for GHTN. She was admitted and informed consent was obtained. Her labor course was remarkable for short period about 10 minutes of late decelerations just before progressing to complete. She progressed to complete dilatation and began to push. She was then set up for delivery. The 's head was delivered atraumatically in the OA position. The shoulders and remainder of the 's body were then delivered without difficulty. Upon delivery, the infant was vigorous and placed on maternal abdomen. After a delya the cord was doubly clamped and cut and the remained on mother's chest. An intact placenta with 3-vessel cord delivered via Yaw and there was found to be minimal bleeding.~ Vigorous fundal massage was performed and the fundus was found to be firm. IV oxytocin was given. Examination of the vagina and perineum revealed no lacerations. Following the delivery, sponge, instrument and needle counts were correct. Mom and baby were both in stable condition in the labor suite. Vitals - Labs Vital Signs - I&O Vital Signs Date Time Temp Pulse Resp B/P (MAP) Pulse Ox O2 Delivery O2 Flow Rate FiO2 07/18/20 19:00 68 18 115/65 (82) 98 Room Air 07/18/20 18:45 73 18 109/64 (79) 98 Room Air 07/18/20 18:30 80 18 110/55 (73) 98 Room Air 07/18/20 18:15 36.5 81 18 121/62 (81) 98 Room Air 07/18/20 18:00 75 18 117/70 (86) 98 Room Air 07/18/20 17:55 78 18 116/61 (79) 98 Room Air 07/18/20 17:50 82 18 122/68 (86) 98 Room Air 07/18/20 17:45 84 18 129/58 (81) 98 Room Air 07/18/20 17:40 80 18 128/67 (87) 98 Room Air 07/18/20 17:35 88 18 118/64 (82) 98 Room Air 07/18/20 17:30 110 18 127/78 (94) Room Air 07/18/20 17:25 104 18 142/71 (94) 99 Room Air 07/18/20 17:20 81 18 128/82 (97) 98 Room Air 07/18/20 17:15 84 18 128/66 (86) Room Air 07/18/20 17:00 72 18 119/58 (78) Room Air 07/18/20 16:45 68 18 118/58 (78) Room Air 07/18/20 16:30 61 18 113/63 (80) Room Air 07/18/20 16:15 74 18 132/74 (93) Room Air 07/18/20 16:00 36.5 80 18 127/67 (87) Room Air 07/18/20 15:45 66 18 129/62 (84) Room Air 07/18/20 15:30 63 18 116/64 (81) 99 Room Air 07/18/20 15:15 36.5 70 18 120/68 (85) 99 Room Air 07/18/20 15:00 108/57 (74) Room Air 07/18/20 14:45 121/60 (80) Room Air 07/18/20 14:30 134/62 (86) Room Air 07/18/20 14:15 36.5 76 110/72 (85) Room Air 07/18/20 14:00 36.5 76 110/72 (85) Room Air 07/18/20 13:25 76 110/72 (85) Room Air 07/18/20 13:15 Room Air 07/18/20 13:00 36.5 97 18 98 Room Air 07/18/20 13:00 98 Room Air 07/18/20 12:51 36.5 78 16 111/75 (87) 98 Room Air Labs Laboratory Tests 07/18/20 13:50: Urine Protein < 6L, Urine Creatinine 83, Urine Protein/Creatinine Ratio 07/18/20 14:00: White Blood Count 12.0H, Red Blood Count 4.03, Hemoglobin 11.6, Hematocrit 36, Mean Corpuscular Volume 89, Mean Corpuscular Hemoglobin 29, Mean Corpuscular Hemoglobin Concent 32, Red Cell Distribution Width 14.6H, Platelet Count 227, Mean Platelet Volume 10.2, Immature Granulocyte % (Auto) 1, Neutrophils (%) (Auto) 69, Lymphocytes (%) (Auto) 14, Monocytes (%) (Auto) 6, Eosinophils (%) (Auto) 10, Basophils (%) (Auto) 1, Neutrophils # (Auto) 8.3H, Lymphocytes # (Auto) 1.7, Monocytes # (Auto) 0.7, Eosinophils # (Auto) 1.2H, Basophils # (Auto) 0.1, Immature Granulocyte # (Auto) 0.1, Sodium Level 134L, Potassium Level 4.1, Chloride Level 106, Carbon Dioxide Level 20L, Anion Gap 8, Blood Urea Nitrogen 9, Creatinine 0.77, Estimat Glomerular Filtration Rate > 60, BUN/Creatinine Ratio 12, Glucose Level 73, Uric Acid 7.3H, Calcium Level 8.5, Corrected Calcium 9.1, Total Bilirubin 0.2, Aspartate Amino Transf (AST/SGOT) 18, Alanine Aminotransferase (ALT/SGPT) 13, Alkaline Phosphatase 123, Lactate Dehydrogenase 160, Total Protein 6.1L, Albumin 3.3 SHANIKA MULLEN MD July 18, 2020 21:49
[2020-07-18] MEDS ORDERED: WITCH HAZEL(TUCKS) 40 EA JAR TOP PRN (23:00)
[2020-07-18] MEDS ORDERED: BENZOCAINE/MENTHOL (DERMOPLAST) 56 ML CAN TP PRN (23:00)
[2020-07-18] MEDS ORDERED: MEASLES,MUMPS,RUBELLA 1 EA INJ SQ ONE (23:00)
[2020-07-18] MEDS: IBUPROFEN 600 MG (MOTRIN) TAB PO SCH (23:51)
[2020-07-19 04:59] VITALS: BP 117/60
[2020-07-19 05:34] LABS: BASOPHILS # (AUTO) 0.1 10^3/uL (0.0-0.1); BASOPHILS % (AUTO) 1 % (0-10); EOSINOPHILS # (AUTO) 1.3 10^3/uL (0.0-0.3); EOSINOPHILS % (AUTO) 11 % (0-10); HEMATOCRIT 32 % (35-52); HEMOGLOBIN 10.1 g/dL (11.5-16.0); LYMPHOCYTES # (AUTO) 2.1 10^3/uL (1.0-4.0); LYMPHOCYTES % (AUTO) 17 % (12-44); MEAN CORPUSCULAR HEMOGLOBIN 29 pg (25-34); MEAN CORPUSCULAR HGB CONC 32 g/dL (32-36); MEAN CORPUSCULAR VOLUME 90 fL (80-99); MEAN PLATELET VOLUME 10.1 fL (9.0-12.2); MONOCYTES % (AUTO) 8 % (0-12); NEUTROPHILS # (AUTO) 7.8 10^3/uL (1.8-7.8); NEUTROPHILS % (AUTO) 63 % (42-75); PLATELET COUNT 189 10^3/uL (130-400); WHITE BLOOD COUNT 12.4 10^3/uL (4.3-11.0)
[2020-07-19] MEDS: IBUPROFEN 600 MG (MOTRIN) TAB PO SCH ×3 (06:07→18:22)
--- NOTE | 2020-07-19 07:39 | Progress Note ---
Subjective Subjective/Events-last exam She reports no significant pain this morning. She reports her vaginal bleeding this normal after giving . Objective Exam Last Set of Vital Signs Vital Signs Date Time Temp Pulse Resp B/P (MAP) Pulse Ox O2 Delivery O2 Flow Rate FiO2 07/19/20 04:59 36.9 58 18 117/60 (79) 98 Room Air 07/18/20 21:30 15.00 Capillary Refill : Less Than 3 Seconds I&O Intake and Output 07/19/20 00:00 Intake Total 1000 ml Balance 1000 ml Intake IV Total 1000 ml Daily Weight Change No General: No Acute Distress Lungs: Clear to Auscultation Abdomen: Soft (with uterus firm) Results/Procedures Lab Laboratory Tests 07/18/20 13:50: Urine Protein < 6L, Urine Creatinine 83, Urine Protein/Creatinine Ratio 07/18/20 14:00: White Blood Count 12.0H, Red Blood Count 4.03, Hemoglobin 11.6, Hematocrit 36, Mean Corpuscular Volume 89, Mean Corpuscular Hemoglobin 29, Mean Corpuscular Hemoglobin Concent 32, Red Cell Distribution Width 14.6H, Platelet Count 227, Mean Platelet Volume 10.2, Immature Granulocyte % (Auto) 1, Neutrophils (%) (Auto) 69, Lymphocytes (%) (Auto) 14, Monocytes (%) (Auto) 6, Eosinophils (%) (Auto) 10, Basophils (%) (Auto) 1, Neutrophils # (Auto) 8.3H, Lymphocytes # (Auto) 1.7, Monocytes # (Auto) 0.7, Eosinophils # (Auto) 1.2H, Basophils # (Auto) 0.1, Immature Granulocyte # (Auto) 0.1, Sodium Level 134L, Potassium Level 4.1, Chloride Level 106, Carbon Dioxide Level 20L, Anion Gap 8, Blood Urea Nitrogen 9, Creatinine 0.77, Estimat Glomerular Filtration Rate > 60, BUN/Creatinine Ratio 12, Glucose Level 73, Uric Acid 7.3H, Calcium Level 8.5, Corrected Calcium 9.1, Total Bilirubin 0.2, Aspartate Amino Transf (AST/SGOT) 18, Alanine Aminotransferase (ALT/SGPT) 13, Alkaline Phosphatase 123, Lactate Dehydrogenase 160, Total Protein 6.1L, Albumin 3.3 07/19/20 05:04: White Blood Count 12.4H, Red Blood Count 3.52L, Hemoglobin 10.1L, Hematocrit 32L , Mean Corpuscular Volume 90, Mean Corpuscular Hemoglobin 29, Mean Corpuscular Hemoglobin Concent 32, Red Cell Distribution Width 14.7H, Platelet Count 189, Mean Platelet Volume 10.1, Immature Granulocyte % (Auto) 1, Neutrophils (%) (Auto) 63, Lymphocytes (%) (Auto) 17, Monocytes (%) (Auto) 8, Eosinophils (%) (Auto) 11H, Basophils (%) (Auto) 1, Neutrophils # (Auto) 7.8, Lymphocytes # (Auto) 2.1, Monocytes # (Auto) 1.0, Eosinophils # (Auto) 1.3H, Basophils # (Au to) 0.1, Immature Granulocyte # (Auto) 0.1 Assessment/Plan Assessment/Plan Admission Status: Inpatient Order (span 2 midnights) Assessment & Plan 1. Status post spontaneous vaginal delivery on July 18, 2020 -Routine care orders -Suspect she will go home in the morning of July 20, 2020 2. Preeclampsiastable -She is not requiring any blood pressure medications JUAN FRANCISCO MCCALLUM MD July 19, 2020 07:39
[2020-07-19] MEDS: DOCUSATE SODIUM 100 MG (COLACE) CAP PO SCH ×2 (08:39→20:18)
[2020-07-19] MEDS: PRENATAL VITAMIN 1 EA TAB PO SCH (08:39)
[2020-07-19 08:43] VITALS: BP 112/59
[2020-07-19 12:51] VITALS: BP 112/66
--- NOTE | 2020-07-19 15:16 | Anesthesia-Regional Post-Op ---
Regional Patient Condition Mental Status: Alert, Oriented x3 Circulation: Same as Pre-Op Headache: Absent Sensation: Full Recovery Motor Block: Absent Post Op Complications Complications None Follow Up Care/Instructions Patient Instructions None needed. Anesthesia/Patient Condition Patient is doing well, no complaints, stable vital signs, no apparent adverse anesthesia problems. ARELIS LÓPEZ DO July 19, 2020 15:16
[2020-07-19 18:22] VITALS: BP 112/58
[2020-07-19 21:30] VITALS: BP 108/56
[2020-07-20] MEDS: IBUPROFEN 600 MG (MOTRIN) TAB PO SCH ×2 (01:40→09:59)
[2020-07-20 01:41] VITALS: BP 117/62
[2020-07-20 09:35] VITALS: BP 110/66
[2020-07-20] MEDS: DOCUSATE SODIUM 100 MG (COLACE) CAP PO SCH (09:59)
[2020-07-20] MEDS: PRENATAL VITAMIN 1 EA TAB PO SCH (09:59)
[2020-07-20] MEDS ORDERED: IBUP-844 PO (10:42)
--- NOTE | 2020-07-20 10:45 | Discharge Summary ---
Discharge Summary Hospital Course Problems/Diagnosis: (1) (spontaneous vaginal delivery) Status: Acute (2) anemia Status: Acute (3) Acute blood loss anemia Status: Acute (4) Gestational hypertension Status: Resolved Resolution Date/Time: 07/18/20 @ 10:45 Qualifiers: Qualified Codes: O13.3 - Gestational [-induced] hypertension without significant proteinuria, third trimester Hospital Course Date of Admission: July 18, 2020 at 12:20 Admission Diagnosis : Family Physician/Provider: Shanika Sandhu MD Date of Discharge: 07/20/20 Discharge Diagnosis: See problem list Hospital Course: Uncomplicated induction, delivery and course. HTN resolved, negative preeclampsia testing. Labs and Pending Lab Test: Home Meds Active Reported Tablet ( Vit/Iron Fumarate/FA) 1 Each Tablet 1 Each PO DAILY Assessment/Pt DC Instructions Follow up with Dr. Sandhu in 6 weeks for visit. Activity as Tolerated: Yes (avoid strenuous activity x 6 weeks) Discharge Physical Examination Allergies: Coded Allergies: amoxicillin (Verified Allergy, Unknown, 06/23/19) General Appearance: No Apparent Distress Respiratory: No Accessory Muscle Use Extremity: Pedal Edema Skin: Normal Color, Warm/Dry Neurologic/Psychiatric: Alert, Normal Mood/Affect SHANIKA SANDHU MD July 20, 2020 10:45
== END 2020-07-20 13:13 | disposition home or self-care (01) | DRG 806 ==
LOC: WSo 12:15 → LDRP 12:16 → WSo 21:53 → LDRP 07-19 04:00
PROVIDERS: ADMIT Family Medicine; ATTEND Family Medicine
PROC: 10E0XZZ Delivery of Products of Conception, External Approach (ICD-10-PCS; principal; 2020-07-18)
PROC: 3E033VJ Introduction of Other Hormone into Peripheral Vein, Percutaneous Approach (ICD-10-PCS; 2020-07-18)
DX: O13.4 Gestational [pregnancy-induced] hypertension without significant proteinuria, complicating childbirth (principal); D62 Acute posthemorrhagic anemia; Z37.0 Single live birth; O90.81 Anemia of the puerperium; Z3A.37 37 weeks gestation of pregnancy; Z88.1 Allergy status to other antibiotic agents
CPT/HCPCS: 36415; 80053; 82570; 83615; 84156; 84550; 85025; 86850; 86900; 86901